=== PATIENT | male | born 1995 | race Caucasian/White ===

== ENCOUNTER 2017-10-31 13:21 | Emergency (ER) | payer OTHER ==
[~2017-10-31] VITALS: Ht 182.8 cm; Wt 78.9 kg
[~2017-10-31 13:21] MED LIST: AMOXICILLIN500 MG PO; AMOXIL500 MG PO; ATARAX25 MG PO; AUGMENTIN ES-6050 ML PO; BENADRYL25 M1 PO; CIPRODEX 0.3%-7.5 ML OT; CYCLOBENZAPRINE5 MG PO; LIDEX0.05% T; MOTRIN400 MG PO; MOTRIN600 MG PO; MOTRIN800 MG PO; NKHM; NORFLEX100 MG PO; PHENERGAN25 M1 PO; PREDNICOT20 MG PO; PREDNISONE20 MG PO; PRELONE5 MG/5 ML PO; PROVENTIL0.09 MG/AC IH; TAMIFLU75 MG PO; TESSALON PERLE100 M1 PO; TRIMOX500 MG PO; ZITHROMAX Z PA250 MG PO; ZOFRAN ODT4 MG SL; ZOFRAN4 MG PO; ZYRTEC10 M2 PO; [UNRECOGNIZED DRUG - OTHER]
[2017-10-31 13:26] VITALS: BP 147/89
[2017-10-31 13:56] LABS: HEMATOCRIT 45.4 % (42.0-52.0); MEAN CORPUSCULAR HGB CONC 35.2 g/dl (33.0-37.0); MEAN PLATELET VOLUME 10.1 fl (9.6-12.3); PLATELET COUNT AUTOMATED 195 10*3/uL (130-400); RED BLOOD COUNT 5.34 10*6/uL (4.50-5.90); WHITE BLOOD COUNT 17.8 10*3/uL (4.8-10.8)
[2017-10-31 14:09] LABS: ALBUMIN 4.6 gm/dl (3.1-4.5); ALKALINE PHOSPHATASE 43 U/L (45-117); BUN 22 mg/dl (7-24); CHLORIDE 104 mmol/L (98-107); CREATININE 1.31 mg/dL (0.70-1.30); POTASSIUM 4.2 mmol/L (3.5-5.1); SGOT/AST 21 IU/L (3-35); SGPT/ALT 23 U/L (12-78); SODIUM 141 mmol/L (136-145); TOTAL PROTEIN 7.9 gm/dL (6.4-8.2)
[2017-10-31 14:14] LABS: TOTAL CELLS COUNTED 100 #CELLS
[2017-10-31 14:15] LABS: PLATELET SUFFICIENCY NORMAL (NORMAL)
[2017-10-31 14:55] LABS: BILIRUBIN NEGATIVE (NEGATIVE); BLOOD NEGATIVE (NEGATIVE); CLARITY SL CLOUDY (CLEAR); COLOR YELLOW (YELLOW); GLUCOSE NEGATIVE (NEGATIVE); KETONE NEGATIVE (NEGATIVE); LEUKO ESTERASE NEGATIVE (NEGATIVE); NITRITE NEGATIVE (NEGATIVE); PH 8.5 (5.0-9.0); SPECIFIC GRAVITY 1.015 (1.005-1.030); UROBILINOGEN 0.2 E.U./dl (0.2-1.0)
[2017-10-31 15:11] LABS: BACTERIA TRACE; MUCOUS 1+
[2017-10-31] MEDS ORDERED: ZOFRAN ODT4 MG SL (15:55)
== END 2017-10-31 16:17 | disposition home or self-care (01) ==
LOC: ED 13:21
PROVIDERS: Nurse Practitioner Family
DX: K29.70 Gastritis, unspecified, without bleeding (principal); F17.200 Nicotine dependence, unspecified, uncomplicated; F10.10 Alcohol abuse, uncomplicated

== ENCOUNTER → 2020-12-23 | Outpatient (CLI) | payer BC | END | disposition home or self-care (01) | LOC: COVID19 14:13 | PROVIDERS: ATTEND Nurse Practitioner Family | DX: U07.1 COVID-19 (principal) ==